=== PATIENT | male | born 1980 | race Hispanic/Latino ===

== ENCOUNTER 2021-11-28 07:00 | Emergency (ER) | payer SELFPAY ==
[~2021-11-28] VITALS: Ht 180.3 cm; Wt 95.0 kg
[2021-11-28] MEDS ORDERED: CEFDINIR300 MG PO (07:57)
[2021-11-28] MEDS ORDERED: IBUPROFEN200 MG PO (07:57)
[2021-11-28] MEDS ORDERED: ACETAMINOPHEN500 MG PO (07:57)
[2021-11-28] MEDS ORDERED: CHLORASEPTIC T1 EACH PO (07:57)
[2021-11-28] MEDS ORDERED: DEXAMETHASONE SOD PHOS INJ 4 MG/ML SDV ONE (08:09)
[2021-11-28] MEDS ORDERED: DEXAMETHASONE SOD PHOS 10 MG/1 ML VIAL IM ONE (08:30)
== END 2021-11-28 08:12 | disposition home or self-care (01) ==
LOC: FSED 07:22
DX: J02.9 Acute pharyngitis, unspecified (principal)
CPT/HCPCS: 83518; 96372; 99283; J1100 ×2

== ENCOUNTER 2023-11-26 12:51 | Emergency (ER) | payer OTHER ==
[~2023-11-26] VITALS: Ht 180.3 cm; Wt 103.9 kg
[~2023-11-26 12:51] MED LIST: ACETAMINOPHEN500 MG PO; CEFDINIR300 MG PO; CHLORASEPTIC T1 EACH PO; CIPRO500 MG PO; DICYCLOMINE HCL20 MG PO; IBUPROFEN200 MG PO; ONDANSETRON ODT4 MG PO; PANTOPRAZOLE SO40 MG PO
[2023-11-26 13:12] VITALS: PULSE 75; RESP 16; TEMP 98.5; O2SAT 96
[2023-11-26] MEDS ORDERED: DIPHENHYDRAMINE25 M2 PO (13:23)
[2023-11-26] MEDS ORDERED: NASACORT16.9 ML (13:23)
== END 2023-11-26 13:40 | disposition home or self-care (01) ==
LOC: FSED 12:55
DX: H66.92 Otitis media, unspecified, left ear (principal); J30.9 Allergic rhinitis, unspecified; R09.81 Nasal congestion
CPT/HCPCS: 99283

== ENCOUNTER 2024-07-04 10:11 | Emergency (ER) | payer OTHER ==
[~2024-07-04] VITALS: Ht 180.3 cm; Wt 103.4 kg
[~2024-07-04 10:11] MED LIST changes: +DIPHENHYDRAMINE25 M2 PO; +NASACORT16.9 ML
[2024-07-04] MEDS: KETOROLAC TROMETHAMINE 30 MG/ML VIAL IV STA (11:48)
[2024-07-04 12:02] VITALS: PULSE 86; RESP 18; TEMP 100.2; O2SAT 98
== END 2024-07-04 12:02 | disposition home or self-care (01) ==
LOC: FSED 10:36
DX: R05.9 Cough, unspecified (principal); R09.89 Other specified symptoms and signs involving the circulatory and respiratory systems; R51.9 Headache, unspecified; R53.81 Other malaise; M54.9 Dorsalgia, unspecified; G89.29 Other chronic pain; Z11.52 Encounter for screening for COVID-19
CPT/HCPCS: 0223U; 83518; 87400; 96372; 99283; J1885

== ENCOUNTER 2024-08-03 12:14 | Emergency (ER) | payer OTHER ==
[~2024-08-03] VITALS: Ht 180.3 cm; Wt 98.9 kg
[2024-08-03 12:27] VITALS: PULSE 100; RESP 20; TEMP 98.7
[2024-08-03] MEDS: ONDANSETRON HCL INJ 2MG/ML 2ML 2 MG/ML VIAL IV STA (13:07)
[2024-08-03] MEDS: DICYCLOMINE HCL 20 MG/2 ML VIAL IM ONE (13:07)
[2024-08-03] MEDS: SODIUM CHLORIDE 0.9% 1000ML 1,000 ML IV ONE (13:07)
[2024-08-03] MEDS ORDERED: DIPHTH,PERTUSS(ACELL),TET VAC 0.5 ML SYRINGE IM ONE (14:15)
[2024-08-03] MEDS ORDERED: ONDANSETRON ODT4 MG PO (14:16)
[2024-08-03] MEDS ORDERED: DICYCLOMINE HCL20 MG PO (14:18)
[2024-08-03 14:40] VITALS: BP 127/58; PULSE 82; RESP 18; O2SAT 97
== END 2024-08-03 14:46 | disposition home or self-care (01) ==
LOC: FSED 12:35
DX: R11.2 Nausea with vomiting, unspecified (principal); K52.9 Noninfective gastroenteritis and colitis, unspecified; R10.9 Unspecified abdominal pain; M54.9 Dorsalgia, unspecified; G89.29 Other chronic pain
CPT/HCPCS: 80053; 85025; 99283; J0500; J2405; J7030